=== PATIENT | male | born 1965 | race Caucasian/White ===

== ENCOUNTER 2021-07-16 12:07 | Emergency (ER) | payer OTHER, SELFPAY ==
[2021-07-16 12:08] VITALS: BP 159/120; PULSE 148; RESP 22; TEMP 37; O2SAT 94; BMI 42.6
--- NOTE | 2021-07-16 12:35 | CT_ITS ---
EXAM: CT CHEST WITHOUT INTRAVENOUS CONTRAST : 1965 CLINICAL INDICATION: trauma TECHNIQUE: Helically acquired images were obtained of the chest without intravenous contrast. This CT exam was performed using one or more of the following dose reduction techniques: automated exposure control, adjustment of the mA and/or kV according to patient size, and/or use of iterative reconstruction technique. This report was created using [employer] report generation technology. COMPARISON: None. FINDINGS: LUNGS AND PLEURAL SPACES: No evidence of pulmonary contusion. No mass. HEART: Unremarkable. Heart size is normal. No pericardial effusion. No significant coronary artery calcifications. MEDIASTINUM: Unremarkable. No mediastinal or hilar adenopathy. Esophagus is unremarkable. No hiatal hernia. THYROID: Unremarkable. No thyroid lesions. BONES/JOINTS: Acute fractures of the posterolateral aspect of the left sixth, seventh and eighth ribs. The seventh rib fracture is mildly displaced and associated with adjacent subpleural and subcutaneous contusion and soft tissue emphysema. No suspicious lytic or blastic abnormality. VASCULATURE: Unremarkable. Thoracic aorta is non-dilated. LIVER: Moderate hepatic steatosis. CT/Chest without Contrast IMPRESSION: 1. Acute fractures of the left sixth, seventh and eighth ribs associated with adjacent subpleural and chest wall contusion. 2. Hepatic steatosis. Individualized dose optimization techniques were used for this CT. at 1350 Reported and signed by: Stan Thompson MD Electronically Signed: Stan Thompson MD at 13:49 EST Tel , Service support ,
--- NOTE | 2021-07-16 12:35 | EKG12_ITS ---
Test Reason : Blood Pressure : / mmHG Vent. Rate : 130 BPM Atrial Rate : 117 BPM P-R Int : 000 ms QRS Dur : 088 ms QT Int : 304 ms P-R-T Axes : 000 001 016 degrees QTc Int : 447 ms Atrial fibrillation Abnormal ECG Confirmed by RINKU MEEKS, JUAN F ([id number]), rewrite editor TATY WORKMAN ([id number]) on 07/20/2021 9:38:17 AM Referred By: MARI Confirmed By:JUAN F DOBBS MD
--- NOTE | 2021-07-16 12:38 | CT_ITS ---
EXAM: CT HEAD WITHOUT INTRAVENOUS CONTRAST : 1965 CLINICAL INDICATION: trauma TECHNIQUE: Multiple axial images were obtained of the head without intravenous contrast. This CT exam was performed using one or more of the following dose reduction techniques: automated exposure control, adjustment of the mA and/or kV according to patient size, and/or use of iterative reconstruction technique. This report was created using [employer] report generation technology. COMPARISON: None. FINDINGS: BRAIN AND EXTRA-AXIAL SPACES: Unremarkable. No intra- or extra-axial hemorrhage. No evidence of acute infarct. No intracranial mass or mass effect. There is preservation of the whitehead/white matter interface. Posterior fossa structures are unremarkable. Ventricles are appropriate for age. No hydrocephalus. Basal cisterns are patent. BONES/JOINTS: Unremarkable. No discrete lytic or blastic abnormalities. SINUSES: Mucosal thickening noted within the paranasal sinuses. MASTOID AIR CELLS: Unremarkable. Clear. ORBITS: Visualized globes, extraocular muscles, optic nerves and retrobulbar fat appear unremarkable. CT/Brain/Head without Contrast IMPRESSION: 1. No acute intracranial abnormality. 2. Chronic paranasal sinusitis. Individualized dose optimization techniques were used for this CT. at 1323 Reported and signed by: Stan Thompson MD Electronically Signed: Stan Thompson MD at 13:22 EST Tel , Service support ,
--- NOTE | 2021-07-16 12:39 | EX.ED.GENINJ ---
HPI History of Present Illness Chief Complaint: Chest Other Informant: patient and spouse/S.O. Narrative Narrative: Patient had a mechanical slip and fall down almost 13 steps yesterday. He states he was carrying a plate of food and slipped. It was a mechanical fall and not syncope. He denies loss of consciousness. He states he did not hit his head but his states she is not so sure. However, he is not having headache or change in mental status. He is on Xarelto for history of A. fib. His complaint is pain in the left lower posterior rib cage. It hurts to move or twist. It hurts somewhat to breathe although he is not short of breath. He has no abdominal pain nausea vomiting. No hematuria. No upper or lower extremity pain. He has been up walking around and move. He did take ambulance and because it would be hard for him to twist and move and to get into a car. Of note, he is not yet taken any of his morning meds. Although he is in A. fib with RVR he does not have symptoms of tachycardia. [facility] Medical History Atrial fibrillation Diabetes High cholesterol Hypertension Home Medications oxycodone-acetaminophen [Percocet] 1 tab PO Q6H PRN 5 Days #20 tab 07/16/21 [Rx Last Taken Unknown] Allergy/AdvReac Type Severity Reaction Status Date / Time BEE STINGS Allergy Swelling Uncoded 07/16/21 12:08 Social History Smoking Status: Current every day smoker tobacco type: cigarettes ROS ROS ED Constitutional Constitutional ED: Denies chills or fever(s) Eyes Eyes: Denies blurry vision or change in vision ENT ENT ED: Denies rhinorrhea Cardiovascular Cardiovascular: Reports chest pain and other Details: He is tachycardic, this is not bothering him or causing him symptoms. See history of present illness. ; Denies palpitations or racing heartbeat Respiratory/Chest Respiratory/Chest: Reports other Details: See history of present illness. ; Denies dyspnea Gastrointestinal Gastrointestinal: Denies abdominal pain, diarrhea, melena, nausea or vomiting Genitourinary Genitourinary ED: Denies hematuria Musculoskeletal Musculoskeletal: Denies back pain or neck pain Integumentary Denies rash Neurologic Neurologic: Denies headache(s), paresthesias or weakness Endocrine Endocrinology: Denies polydipsia or polyuria Hematologic/Lymphatic Hematologic/Lymphatic: Reports easy bleeding and easy bruising Allergic/Immunologic Allergic/Immunologic ED: Denies mouth swelling or urticaria EXAM Physical Exam Const Vital Signs: 07/16/21 12:08 07/16/21 12:35 Temperature 98.6 F Temperature Source Oral Pulse Rate 148 H Respiratory Rate 22 H Blood Pressure 159/120 H Blood Pressure Mean 133 Pulse Ox 94 Oxygen Delivery Method Room Air Room Air Patient is comfortable lying in bed. However, if I have him move or twist it causes significant increase in pain. Positive well nourished, well developed and obese General Appearance ED: well developed Nutritional Appearance: obese HEENT HEENT Narrative: I see no sign of contusions or abrasions on his head scalp or face. atraumatic; Negative for trauma Eyes PERRL and EOMs intact bilaterally Neck full ROM General: Negative for tenderness Chest Wall inspection of chest normal Chest Narrative: I did have the patient roll over. I see no contusions on his chest wall or abrasions at this time. There is no subcutaneous air. He has tenderness in the left posterior chest wall approximately midpoint on the left side at approximately T8-T10 area. No crepitance with breathing. Resp normal respiratory effort and clear to auscultation bilaterally Resp Narrative: No subcu air. No differential breath sounds. Auscultation: Negative for rales, rhonchi or wheezes Cardio Rate: tachycardic Rhythm: abnormal rhythm GI normal to inspection, nondistended, normoactive bowel sounds, non-tender and non-distended Palpation: soft Back/Spine normal to inspection and no thoracic nor lumbar tenderness Thoracic Spine / Upper Back: Negative for thoracic spinal tenderness Extremity normal to inspection General Extremety ED: Negative for tenderness Neuro oriented x3 Sensorium / Orientation: alert Psych mental status grossly normal Skin no rashes or lesions noted and no wounds MDM MDM MDM Narrative Medical decision making narrative: Patient has slight elevated white count that could be stress demargination. Electrolytes are overall unremarkable other than mild elevation of glucose of 145. Troponin is negative. CT of his chest shows acute fractures of the left sixth seventh and eighth ribs with some contusion. No pneumothorax. Heart rate is down to about 10 5-1 15. I will give him another dose of metoprolol here. He has chronic atrial fibrillation and just did not take his meds this morning. I think pain is also contributing to this increased rate. Lab Data Attestation: I reviewed the patient's lab results. Labs: Laboratory Results - last 24 hr 07/16/21 07/16/21 12:40 12:40 WBC 12.0 H RBC 4.79 Hgb 15.3 Hct 44.9 MCV 93.7 MCH 31.9 MCHC 34.1 RDW Std Deviation 45.4 H RDW Coeff of Tammy 13.2 Plt Count 216 MPV 9.8 Immature Gran % (Auto) 0.200 Neut % (Auto) 79.7 H Lymph % (Auto) 13.0 L [place] % (Auto) 6.3 Eos % (Auto) 0.2 Baso % (Auto) 0.6 Absolute Neuts (auto) 9.6 H Absolute Lymphs (auto) 1.56 Nucleated RBC % 0 Sodium 140 Potassium 4.6 Chloride 106 Carbon Dioxide 27.0 Anion Gap 7 BUN 17 Creatinine 1.04 Estim Creat Clear Calc 91.77 Est GFR (MDRD) Af Amer 95 Est GFR (MDRD) Non-Af 79 BUN/Creatinine Ratio 16.3 Glucose 145 H Calcium 9.0 Troponin I High Sens 4 Radiography Diagnostic Testing: Clinical Impression(s) from Imaging Studies Chest CT 07/16/21 12:35 IMPRESSION: 1. Acute fractures of the left sixth, seventh and eighth ribs associated with adjacent subpleural and chest wall contusion. 2. Hepatic steatosis. Individualized dose optimization techniques were used for this CT. at 1350 Reported and signed by: Stan Thompson MD Electronically Signed: Stan Thompson MD at 13:49 EST Tel , Service support , Brain CT 07/16/21 12:38 IMPRESSION: 1. No acute intracranial abnormality. 2. Chronic paranasal sinusitis. Individualized dose optimization techniques were used for this CT. at 1323 Reported and signed by: Stan Thompson MD Electronically Signed: Stan Thompson MD at 13:22 EST Tel , Service support , EKG Initial EKG: Comments: EKG done for tachycardia read by me shows atrial fibrillation with rapid ventricular rate of 130. No sign of acute ST elevation or depression. No ventricular ectopy is noted. QRS duration and QTc normal. Discharge Plan Triage Chief Complaint: Chest Other ED Provider: Dameon Jordan Dx/Rx/DC Orders Clinical Impression: Fall on steps, Left rib fracture Instructions: ED Mechanical Fall, ED Rib Fracture Prescriptions: New oxycodone-acetaminophen [Percocet] 5-325 mg tablet 1 tab PO Q6H PRN (Reason: pain) 5 Days Qty: 20 RF: 0 Primary Care Provider: Tam Romero NP Referrals: Tam Romero [employer], [employer] [Primary Care Provider] - 3-5 Days Disposition Disposition: Home, Self Care Discharge Date/Time: 07/16/21 15:53
[2021-07-16] MEDS: Morphine 4 MG/ML Syringe IV (12:46)
[2021-07-16] MEDS: Metoprolol Tartrate 5 MG/5 ML Vial IV ×2 (12:46→15:05)
[2021-07-16 12:47] LABS: Absolute Lymphocyte Count 1.56 X10^3/uL (0.83-4.51); Absolute Neutrophil Count 9.6 X10^3/uL (2.0-7.7); Basophil# 0.07 X10^3/uL; Basophil% 0.6 % (0-1); Eosinophil# 0.03 X10^3/uL; Eosinophils% 0.2 % (0-5); Hematocrit 44.9 % (40-54); Hemoglobin 15.3 g/dL (13.0-16.5); Lymphocyte # 1.56 X10^3/ul (0.83-4.51); Mean Corp Hgb Conc 34.1 g/dL (32-36); Mean Corpuscular Hgb 31.9 pg (27.0-32.0); Mean Corpuscular Volume 93.7 fL (80-94); Mean Platelet Vol. 9.8 fl (6.2-12.0); Monocyte# 0.76 X10^3/uL; Monocyte% 6.3 % (0-10); NRBC Flagged by Analyzer 0 % (0-5); Neutrophil # 9.59 X10^3/uL (2.7-7.7); Neutrophil % 79.7 % (47-70); Platelet Count 216 K/mm3 (150-450); RBC Distribution Width CV 13.2 % (11.6-14.6); RBC Distribution Width SD 45.4 fl (35.1-43.9); Red Blood Count 4.79 M/mm3 (4.6-6.2)
[2021-07-16] MEDS: Digoxin 125 MCG Tablet PO (12:47)
[2021-07-16] MEDS: Carvedilol 6.25 MG Tablet PO (12:47)
[2021-07-16 13:06] LABS: Anion Gap 7 (5-15); BUN 17 mg/dL (7-18); BUN/Creat Ratio 16.3 RATIO (10-20); Chloride 106 mmol/L (98-107); Creatinine, Serum 1.04 mg/dL (0.70-1.30); EST Glomerular Filtration Rate 79 mL/min (>60); Est Glom Filt Rate - Afr Amer 95 mL/min (>60); Estimated Creatinine Clearance 91.77 ml/min; Glucose 145 mg/dL (74-106); Potassium 4.6 mmol/L (3.5-5.1); Sodium Level 140 mmol/L (136-145); Troponin-I HS 4 pg/mL (3.0-78.0)
[2021-07-16 15:26] VITALS: BP 148/88; PULSE 101; RESP 16
[2021-07-16] MEDS: HYDROmorphone 1 MG/ML Syringe IV (15:27)
[2021-07-16 15:28] VITALS: BP 148/88; PULSE 91; RESP 16
== END 2021-07-16 15:53 | disposition home or self-care (01) ==
PROVIDERS: Emergency Provider Emergency Medicine; PCP Nurse Practitioner Family
DX: S22.42XA Multiple fractures of ribs, left side, initial encounter for closed fracture (principal); W10.9XXA Fall (on) (from) unspecified stairs and steps, initial encounter; Y93.89 Activity, other specified; Y92.9 Unspecified place or not applicable; Y99.8 Other external cause status; I48.20 Chronic atrial fibrillation, unspecified; F17.210 Nicotine dependence, cigarettes, uncomplicated; E66.9 Obesity, unspecified; Z68.41 Body mass index [BMI] 40.0-44.9, adult; Z79.01 Long term (current) use of anticoagulants
CPT/HCPCS: 70450; 71250; 80048; 84484; 85025; 93005; 96374; 96375; 96376; 99285; J7030; A4216